=== PATIENT | female | born 1950 | race Hispanic/Latino ===

== ENCOUNTER 2018-08-27 07:35 | Day surgery (SDC) | payer MEDICARE, OTHER ==
[2018-08-25 09:53] VITALS: BMI 14.2
[2018-08-27 08:28] VITALS: O2SAT 100
[2018-08-27] MEDS ORDERED: cefTRIAXone 1 gm 1 GM/100 ML BAG IVPB ONE (09:03)
[2018-08-27] MEDS ORDERED: Iohexol 240 (50 ml) ONE (09:03)
[2018-08-27] MEDS ORDERED: Lidocaine 2% Jelly (Uro-Jet) ONE (09:03)
[2018-08-27] MEDS ORDERED: Propofol 10 mg/ml Inj (20 ML) ONE ×2 (09:17)
[2018-08-27 11:28] VITALS: RESP 18
[2018-08-27 11:32] VITALS: BP 105/75; PULSE 74; TEMP 98.1
--- NOTE | 2018-08-27 21:25 | OP ---
PROCEDURE DATE: 08/27/2018 TIME OF DICTATION: 09:45 a.m. PREOPERATIVE DIAGNOSIS: Right adnexal mass pushing up against the bladder. PROCEDURE: Cystoscopy to check for invasion. SURGEON: Harsh Mancini MD TYPE OF ANESTHESIA: IV sedation. ANESTHESIOLOGIST: Tee Cortes MD DESCRIPTION OF PROCEDURE: The patient was placed on the cystoscopy table in the dorsal lithotomy position, prepped and draped in the usual sterile fashion with Betadine solution under adequate IV sedation. Next, a #22 Greek cystoscope was inserted into the bladder. Using sterile water as irrigating solution throughout the entire procedure, the bladder was examined in all 4 quadrants. There were no foreign bodies or suspicious lesion seen in the bladder. There was a mass seen pushing against the bladder, but no definite invasion from this mass. The bladder appeared to be slightly injected. Otherwise, relatively normal configuration with minimal trabeculation. Both ureteral orifices were in normal location, normal configuration on the trigone with clear efflux bilaterally. Also, the urethra was examined, which also appeared to be normal. At the end of the procedure, the bladder was emptied of all irrigating solution. The patient tolerated the procedure well without any blood loss and was brought to the recovery area in satisfactory condition. Harsh Mancini MD
== END 2018-08-27 11:20 | disposition home or self-care (01) ==
LOC: C.SDS 07:35
PROVIDERS: ATTEND Urology
DX: R19.03 Right lower quadrant abdominal swelling, mass and lump (principal); R31.9 Hematuria, unspecified; G40.909 Epilepsy, unspecified, not intractable, without status epilepticus; Z85.038 Personal history of other malignant neoplasm of large intestine; Z90.49 Acquired absence of other specified parts of digestive tract; Z98.890 Other specified postprocedural states; Z98.42 Cataract extraction status, left eye; Z98.41 Cataract extraction status, right eye; Z79.899 Other long term (current) drug therapy; Z88.8 Allergy status to other drugs, medicaments and biological substances
CPT/HCPCS: 52000; J0696